=== PATIENT | female | born 2000 | race Two or more races ===

== ENCOUNTER 2020-09-09 15:59 | Outpatient (CLI) | payer OTHER ==
[2020-09-09] MEDS ORDERED: PRENATAL TABLE1 EAC1 PO (16:09)
== END 2020-09-09 20:00 | disposition home or self-care (01) ==
LOC: OBS/DEL 15:59
PROVIDERS: ATTEND Specialist
DX: O46.8X2 Other antepartum hemorrhage, second trimester (principal); Z3A.25 25 weeks gestation of pregnancy

== ENCOUNTER 2020-12-14 14:46 | Outpatient (CLI) | payer OTHER ==
[~2020-12-14 14:46] MED LIST: PRENATAL TABLE1 EAC1 PO
== END 2020-12-14 17:50 | disposition home or self-care (01) ==
LOC: NST 14:46
PROVIDERS: ATTEND Specialist
DX: Z34.03 Encounter for supervision of normal first pregnancy, third trimester (principal)

== ENCOUNTER 2020-12-17 19:47 | Outpatient (CLI) | payer OTHER | END 2020-12-17 20:15 | disposition home or self-care (01) | LOC: NST 19:47 | PROVIDERS: ATTEND Obstetrics & Gynecology | DX: Z34.03 Encounter for supervision of normal first pregnancy, third trimester (principal) ==

== ENCOUNTER 2020-12-20 06:50 | Inpatient (IN) | payer OTHER ==
[~2020-12-20] VITALS: Ht 149.9 cm; Wt 76.2 kg
== END 2020-12-23 14:05 | disposition home or self-care (01) | DRG 807 ==
LOC: LDR 06:50 → OB/GYN 12-21 16:30
PROVIDERS: ADMIT Obstetrics & Gynecology; ATTEND Obstetrics & Gynecology
PROC: 3E0P7VZ Introduction of Hormone into Female Reproductive, Via Natural or Artificial Opening (ICD-10-PCS; 2020-12-20)
PROC: 4A1HXFZ Monitoring of Products of Conception, Cardiac Rhythm, External Approach (ICD-10-PCS; 2020-12-20)
PROC: 10E0XZZ Delivery of Products of Conception, External Approach (ICD-10-PCS; principal; 2020-12-21)
PROC: 0KQM0ZZ Repair Perineum Muscle, Open Approach (ICD-10-PCS; 2020-12-21)
DX: O70.1 Second degree perineal laceration during delivery (principal); O48.0 Post-term pregnancy; O99.824 Streptococcus B carrier state complicating childbirth; Z37.0 Single live birth; Z3A.40 40 weeks gestation of pregnancy